=== PATIENT | female | born 1960 | race Caucasian/White ===

== ENCOUNTER → 2018-02-10 | Outpatient (CLI) | payer BC ==
[~2018-02-10] MED LIST: BUPIVACAINE MPF 0.25% 10 ML VIAL. ONE; DEXAMETHASONE SOD PHOS 4 MG/ML VIAL ONE; LIDOCAINE 1% PF 30 ML VIAL. ONE
== END | disposition home or self-care (01) ==
LOC: SURG 14:53
PROVIDERS: ATTEND Anesthesiology Pain Medicine
DX: M47.816 Spondylosis without myelopathy or radiculopathy, lumbar region (principal); Z98.890 Other specified postprocedural states
CPT/HCPCS: 64493; 64494; J1100; J2001; J3490

== ENCOUNTER → 2018-10-27 | Outpatient (CLI) | payer BC ==
--- NOTE | 2018-10-28 10:33 | RAD ---
Ultrasound the abdomen limited. HISTORY:, Elevated liver enzymes R 94.5 Ultrasound was used to evaluate the abdomen. Pancreas was normal in appearance. Aorta and vena cava were unremarkable. Gallbladder was normal without gallstones or gallbladder wall thickening. Common duct was normal measuring 3 mm. Liver is normal in size and appearance without a focal lesion. Right kidney is 10.1 cm in length without a mass or hydronephrosis. IMPRESSION: 1. Liver within normal limits in size and appearance. 2. No gallstones noted. Electronically signed by: Jimmie Powell MD (10/28/2018 10:30 AM) [facility]
== END | disposition home or self-care (01) ==
LOC: US 07:43
PROVIDERS: ATTEND Nurse Practitioner Family
DX: R94.5 Abnormal results of liver function studies (principal)
CPT/HCPCS: 76705